=== PATIENT | female | born 1955 | race African-American/Black ===

== ENCOUNTER 2017-11-28 17:33 | Emergency (ER) | payer OTHER ==
[2017-11-28 17:42] VITALS: BP 131/80; PULSE 67; TEMP 99.1; BMI 29.5
--- NOTE | 2017-11-28 18:05 | PDOC ---
History of Present Illness - General Chief Complaint: Injury Stated Complaint: RT FOOT INJURY Time Seen by Provider: 11/28/17 17:50 History Source: Patient - History of Present Illness Initial Comments: The patient is a 62F w/ a history of anti-phospholipid antibody syndrome, hypothyroidism, and HTN presents for evaluation of R dorsal foot pain. The patient reports tripping while descending the stairs from her home this morning on the way to work (approx 0500). The patient describes hyperextending her right ankle and falling down 2-3 stairs. She denies hitting her head, LOC, or any injury other than her R foot. She was able to ambulate independently immediately afterwards as well as the first portion of her shift at work which involves copious walking. She denies loss of sensation, loss of function, recent illness, fevers, MAZARIEGOS, or neck/back pain. She tried taking Ibuprofen will little relief once today. 11/28/17 18:41 Past History - Past Medical History Allergies/Adverse Reactions: Allergies Allergy/AdvReac Type Severity Reaction Status Date / Time No Known Allergies Allergy Verified 11/28/17 17:34 Home Medications: Ambulatory Orders Amlodipine Bes/Olmesartan Med [Breanna 10-40 mg Tablet] 1 each PO DAILY 11/28/17 Glipizide 20 mg PO BID 11/28/17 Ibuprofen [Motrin -] 400 mg PO ONCE 11/28/17 Lamotrigine [Lamictal Xr] 100 mg PO DAILY 11/28/17 Levothyroxine [Synthroid -] 125 mcg PO DAILY 11/28/17 Mycophenolate Mofetil [Cellcept] 500 mg PO BID 11/28/17 Prednisone 10 mg PO DAILY 11/28/17 Warfarin Na [Coumadin] 7.5 mg PO DAILY 11/28/17 Cancer: Yes (thyroid) COPD: No Other medical history: antiphospholipid syndrome - Immunization History Immunization Up to Date: No - Suicide/Smoking/Psychosocial Hx Smoking Status: No Smoking History: Current some day smoker Have you smoked in the past 12 months: Yes Number of Cigarettes Smoked Daily: 10 Information on smoking cessation initiated: Yes Hx Alcohol Use: No Substance Use Type: None Review of Systems - Review of Systems Able to Perform ROS?: Yes Comments:: GENERAL/CONSTITUTIONAL: No fever or chills. No weakness HEAD, EYES, EARS, NOSE AND THROAT: +hx of R central vision loss 2/2 retinal a. occlusion; change in vision. No ear pain or discharge. No sore throat CARDIOVASCULAR: No chest pain or shortness of breath RESPIRATORY: No cough, wheezing, or hemoptysis GASTROINTESTINAL: No nausea, vomiting, diarrhea or constipation GENITOURINARY: No dysuria, frequency, or change in urination MUSCULOSKELETAL: +R dorsal foot pain; Denies other injury SKIN: No rash NEUROLOGIC: No headache, loss of consciousness, or change in strength/sensation HEMATOLOGIC/LYMPHATIC: +hx of Anti-phospholipid syndrome, on warfarin, denies hx of clot ALLERGIC/IMMUNOLOGIC: No hives or skin allergy 11/28/17 17:53 Is the patient limited [place] proficient: No *Physical Exam - Vital Signs Last Vital Signs Temp Pulse Resp BP Pulse Ox 99.1 F 67 18 131/80 100 11/28/17 17:33 11/28/17 17:33 11/28/17 17:33 11/28/17 17:33 11/28/17 17:33 - Physical Exam Comments: GENERAL: Awake, alert, and fully oriented, in no acute distress HEAD: No signs of trauma, normocephalic, atraumatic EYES: PERRL, EOMI, sclera anicteric, conjunctiva clear ENT: Hearing grossly normal, nares patent, oropharynx clear without exudates. Moist mucosa NECK: Normal ROM, no midline TTP LUNGS: Breathing comfortably on room air w/ symmetric chest rise HEART:Regular rate and rhythm, peripheral pulses normal and equal bilaterally NEUROLOGICAL: Cranial nerves II through XII grossly intact. Normal speech, normal gait, no focal sensorimotor deficits SKIN: Warm, Dry RLE: Inspection: Swelling and mild erythema noted over the dorsal surface of the 1st and 2nd tarsal/metatarsal portion of the foot. TTP over area of swelling. No open wounds. No TTP over b/l malleoli. No 5th metatarsal TTP. No pain proximal to the foot. Compartments soft and compressible, pain within proportion, no pain to passive stretch Sensation: SPLT DP, SP, Tib, Ange, Saph? Motor: 5/5 EHL, 5/5 FHL, 5/5 TA, 5/5GS, 5/5 Quad, 5/5 Ham Vascular: 2+ DP LLE: Inspection: No erythema or ecchymosis. No tenderness, no obvious abnormalities, no open wounds. Compartments soft and compressible, no pain to passive stretch Sensation: SPLT DP, SP, Tib, Ange, Saph Motor: 5/5 EHL, 5/5 FHL, 5/5 TA, 5/5GS, 5/5 Quad, 5/5 Ham Vascular: 2+ DP 11/28/17 18:05 ED Treatment Course - RADIOLOGY Radiology Studies Ordered: Category Date Time Status FOOT-RIGHT [RAD] Stat Radiology 11/28/17 17:51 Ordered Medical Decision Making - Medical Decision Making The patient is a 62F who presents w/ R foot pain s/p mechanical fall down 2-3 stairs at approx 0500 today Ddx: acute fracture v muscle strain v sprain R foot XR w/o evidence of acute fx Likely R foot strain/soft tissue injury Tylenol 1g PO once for pain Will dress foot with compression dressing Patient given recommendations for injury care (RICE), pain control (including avoiding NSAIDs), and return precautions Plan for D/C w/ PCP f/u Work note provided until Thursday Plan discussed w/ patient who is in agreement and verbalized understanding Dispo: Home 11/28/17 18:56 *DC/Admit/Observation/Transfer Diagnosis at time of Disposition: Right foot sprain Qualifiers: Encounter type: initial encounter Qualified Code(s): S93.601A - Unspecified sprain of right foot, initial encounter - Discharge Dispostion Disposition: HOME Condition at time of disposition: Stable Decision to Admit order: No - Referrals Referrals: Evelyn Grey [Primary Care Provider] - - Patient Instructions Printed Discharge Instructions: How To Perform RICE (Rest, Ice, Compress, Elevate), DI for Foot Sprain Additional Instructions: You were seen in the Emergency Department for right foot strain. Please review the handouts provided at discharge. Continue to rest, elevate, compress, and ice the affected area. You may take Tylenol, up to 1000mg, every 6 hours as needed for pain. It is our recommendation that you avoid Ibuprofen for pain control given its potential interaction with your anticoagulation medication ( Warfarin/Coumadin). Return to the Emergency Room if you develop changes in sensation, worsening swelling, inability to walk, reduced movement, or any new/concerning symptoms. - Post Discharge Activity Forms/Work/School Notes: Back to Work
[2017-11-28] MEDS ORDERED: ACETAMINOPHEN 325 MG TABLET (FP) PO ONE (18:24)
[2017-11-28] MEDS ORDERED: ACETAMINOPHEN 500 MG TABLET (FP) ONE (18:26)
--- NOTE | 2017-11-28 18:48 | PDOC ---
Attending Attestation - Resident Resident Name: SuManoj - ED Attending Attestation I have performed the following: I have examined & evaluated the patient, The case was reviewed & discussed with the resident, I agree w/resident's findings & plan - HPI HPI: 11/28/17 18:40 62-year-old female with history of positive lupus anticoagulant on Coumadin for history of retinal occlusion. She is sero-positive for lupus, but no clinical symptoms ever. She also has possible mild multiple sclerosis. Her INR has been very stable and has been monitored on a stable dose of Coumadin for many many years. Her recent INR was 2.3. She is scheduled for another INR in November. This morning she was getting ready to go to work. She was walking down the stairs when she missed a step 2 steps from the bottom. She went forward and hyperextended her right foot. She also got a minor bruise to the left lateral knee. The knee is able to range fully without pain. Currently, the right foot is swollen and tender over the midfoot. The ankle feels fine. The lower leg also feels fine. The patient denies any injuries above the waist. There was no head or neck injury. There was no chest, back, or flank injury. - Physicial Exam PE: 11/28/17 18:48 On examination, the patient is awake, alert, and fully oriented. Head and neck exam is negative for trauma. Chest and abdominal exam is also negative. The lower extremities are notable for a minor superficial abrasion over the lateral left thigh but no bony tenderness or swelling, normal range of motion of all joints in the left leg. The right lower extremity is normal at the knee and ankle. The dorsal foot has swelling and tenderness over the midfoot. Skin is intact. Pulses are intact. Capillary refill is normal. Sensation is intact. Neurological examination is also normal. - Medical Decision Making 11/28/17 18:49 Impression: Right foot sprain. Rule out fracture. Plan: Right foot x-rays, 3 views On my review, the right foot x-ray show no fracture or dislocation. There is only soft tissue swelling. At the time of discharge, the final radiology reading is pending. X-ray follow-up procedure activated. Final impression: Right foot sprain. No fracture. Patient advised to take Tylenol, no Motrin due to her being on Coumadin. She was further advised to elevate the foot to reduce swelling. An Filemon wrap was applied to reduce swelling. Patient was advised to follow-up with her primary care physician next week. Further advised to return to the emergency department for any progressive swelling, pain, loss of sensation, or other serious symptoms.
== END 2017-11-28 18:45 | disposition home or self-care (01) ==
LOC: FER 17:33
DX: S93.601A Unspecified sprain of right foot, initial encounter (principal); W10.9XXA Fall (on) (from) unspecified stairs and steps, initial encounter; Y93.89 Activity, other specified; Y92.89 Other specified places as the place of occurrence of the external cause; E03.9 Hypothyroidism, unspecified; I10 Essential (primary) hypertension
CPT/HCPCS: 73630-TC-RT-FY; 99283-25